=== PATIENT | female | born 1990 | race Caucasian/White ===

== ENCOUNTER → 2018-12-30 15:54 | Outpatient (CLI) | payer OTHER, SELFPAY ==
[2018-12-30 17:37] LABS: Thyroid Stimulating Hormone 2.01 uIU/mL (0.47-4.68)
== END ==
PROVIDERS: PCP Hospitalist; Visit Provider Hospitalist
DX: E03.9 Hypothyroidism, unspecified (principal)
CPT/HCPCS: 36415; 84443

== ENCOUNTER → 2020-04-10 10:22 | Outpatient (CLI) | payer OTHER, SELFPAY ==
[2020-04-10 12:18] LABS: Add Manual Diff / Slide Review NO; Basophils Absolute Auto 0 /uL (0-100); Basophils Percent Auto 0.5 % (0-2); Eosinophils Absolute Auto 0 /uL (0-450); Eosinophils Percent Auto 0.7 % (2-4); Hematocrit 38.5 % (36-46); Lymphocytes Absolute Auto 2200 /uL (1100-4500); Lymphocytes Percent Auto 33.4 % (25-40); Mean Corpuscular HGB Conc 33.9 % (30-36); Mean Corpuscular Hemoglobin 30.5 PG (26-34); Mean Corpuscular Volume 89.9 fL (80-100); Monocytes Absolute Auto 600 /uL (0-900); Monocytes Percent Auto 9.1 % (3-14); Neutrophils Absolute Auto 3800 /uL (1500-7000); Neutrophils Percent Auto 56.3 % (50-75); Platelet Count 208 X10^3/uL (150-400); Red Blood Cell Count 4.28 X10^6/uL (4.0-5.2); Red Cell Distribution Width 12.5 % (11.6-14.8); White Blood Cell Count 6.7 X10^3/uL (4.5-11.0)
[2020-04-10 13:04] LABS: TSH w/ Reflex to FT4 3.32 uIU/mL (0.47-4.68)
[2020-04-10 14:42] LABS: Vitamin D 25 Hydroxy (D3) 50.9 ng/mL (30.0-100.0)
== END ==
PROVIDERS: PCP Registered Nurse Diabetes Educator; Referring Provider Registered Nurse Diabetes Educator; Visit Provider Registered Nurse Diabetes Educator
DX: R45.86 Emotional lability (principal)
CPT/HCPCS: 36415; 82306; 84443; 85025

== ENCOUNTER → 2020-07-17 14:44 | Outpatient (CLI) | payer OTHER, SELFPAY ==
[2020-07-17 15:46] LABS: TSH w/ Reflex to FT4 3.26 uIU/mL (0.47-4.68)
== END ==
PROVIDERS: PCP Registered Nurse Diabetes Educator; Referring Provider Registered Nurse Diabetes Educator; Visit Provider Registered Nurse Diabetes Educator
DX: E03.9 Hypothyroidism, unspecified (principal)
CPT/HCPCS: 36415; 84443

== ENCOUNTER → 2020-11-15 09:05 | Outpatient (CLI) | payer OTHER, SELFPAY ==
[2020-11-15 10:24] LABS: Add Manual Diff / Slide Review NO; Basophils Absolute Auto 0 /uL (0-100); Basophils Percent Auto 0.4 % (0-2); Eosinophils Absolute Auto 0 /uL (0-450); Eosinophils Percent Auto 0.7 % (2-4); Hematocrit 37.4 % (36-46); Hemoglobin 12.9 g/dL (12.0-16.0); Lymphocytes Absolute Auto 2400 /uL (1100-4500); Lymphocytes Percent Auto 42.6 % (25-40); Mean Corpuscular HGB Conc 34.5 % (30-36); Mean Corpuscular Hemoglobin 31.3 PG (26-34); Mean Corpuscular Volume 90.7 fL (80-100); Monocytes Absolute Auto 500 /uL (0-900); Monocytes Percent Auto 8.1 % (3-14); Neutrophils Absolute Auto 2800 /uL (1500-7000); Neutrophils Percent Auto 48.2 % (50-75); Platelet Count 186 X10^3/uL (150-400); Red Blood Cell Count 4.12 X10^6/uL (4.0-5.2); Red Cell Distribution Width 12.8 % (11.6-14.8); White Blood Cell Count 5.7 X10^3/uL (4.5-11.0)
[2020-11-15 10:36] LABS: Erythrocyte Sedimentation Rate 8 MM/HR (0-20)
[2020-11-15 10:38] LABS: Alanine Aminotransferase 15 IU/L (<35); Albumin 4.3 g/dL (3.5-5.0); Albumin Globulin Ratio 1.4 (1.0-2.8); Alkaline Phosphatase 56 U/L (38-126); Aspartate Aminotransferase 25 IU/L (14-36); BUN Creatinine Ratio 19.4 (6-22); Bilirubin Total 0.3 mg/dL (0.2-1.3); Blood Urea Nitrogen 13 mg/dL (7-17); C-Reactive Protein Quant < 0.5 mg/dL (<1.0); Calcium 9.5 mg/dL (8.4-10.2); Carbon Dioxide 26 mmol/L (22-32); Chloride 104 mmol/L (98-107); Estimated Glomerular Filt Rate > 60.0 mL/min (>60); Globulin 3.1 g/dL (1.7-4.1); Glucose 74 mg/dL (70-100); HEMOLYSIS < 15 (0-50); Lipase 41 U/L (23-300); Potassium 4.3 mmol/L (3.4-5.1); Sodium 136 mmol/L (137-145); Total Protein 7.4 g/dL (6.3-8.2)
[2020-11-16 15:36] LABS: Deamidated Gliadin Ab IgA 4 units (0-19); Deamidated Gliadin Ab IgG 1 units (0-19); Immunoglobulin A,Qn 247 mg/dL (87-352); t-Transglutaminase IgA <2 U/mL (0-3)
[2020-11-17 10:47] LABS: Interpretation Negative (Negative)
== END ==
PROVIDERS: PCP Registered Nurse Diabetes Educator; Referring Provider Family Medicine; Visit Provider Family Medicine
DX: E03.9 Hypothyroidism, unspecified (principal); R10.9 Unspecified abdominal pain; R45.89 Other symptoms and signs involving emotional state
CPT/HCPCS: 36415; 80053; 82784; 83013; 83516; 83690; 85025; 85651; 86140

== ENCOUNTER → 2021-03-27 10:14 | Outpatient (CLI) | payer OTHER, SELFPAY ==
[2021-03-27 14:16] LABS: HEMOLYSIS 17 (0-50); Iron 89 ug/dL (37-170)
[2021-03-27 14:26] LABS: Percent Iron Saturation 32 % (15-50); Total Iron Binding Capacity 281 ug/dL (265-497); Transferrin 211 mg/dL (206-381)
[2021-03-27 14:47] LABS: Ferritin 28 ng/mL (6-137)
== END ==
PROVIDERS: PCP Registered Nurse Diabetes Educator; Referring Provider Registered Nurse Diabetes Educator; Visit Provider Registered Nurse Diabetes Educator
DX: E61.1 Iron deficiency (principal)
CPT/HCPCS: 36415; 82728; 83540; 83550

== ENCOUNTER → 2021-07-21 14:01 | Outpatient (CLI) | payer OTHER, SELFPAY ==
[2021-07-21 17:00] LABS: TSH w/ Reflex to FT4 1.26 uIU/mL (0.47-4.68)
[2021-07-21 17:04] LABS: Ferritin 39 ng/mL (6-137)
== END ==
PROVIDERS: PCP Registered Nurse Diabetes Educator; Referring Provider Registered Nurse Diabetes Educator; Visit Provider Registered Nurse Diabetes Educator
DX: R53.83 Other fatigue (principal); E03.9 Hypothyroidism, unspecified
CPT/HCPCS: 36415; 82728; 84443

== ENCOUNTER → 2022-04-20 16:16 | Outpatient (CLI) | payer OTHER, SELFPAY ==
[2022-04-20 18:32] LABS: Ferritin 45 ng/mL (6-137)
== END ==
PROVIDERS: PCP Registered Nurse Diabetes Educator; Referring Provider Registered Nurse Diabetes Educator; Visit Provider Registered Nurse Diabetes Educator
DX: R53.83 Other fatigue (principal); R79.0 Abnormal level of blood mineral
CPT/HCPCS: 36415; 82728

== ENCOUNTER → 2023-01-06 17:20 | Outpatient (CLI) | payer OTHER, SELFPAY ==
[2023-01-06 18:38] LABS: TSH w/ Reflex to FT4 4.88 uIU/mL (0.47-4.68)
== END ==
PROVIDERS: PCP Registered Nurse Diabetes Educator; Referring Provider Registered Nurse Diabetes Educator; Visit Provider Registered Nurse Diabetes Educator
DX: E03.9 Hypothyroidism, unspecified (principal)
CPT/HCPCS: 36415; 84439; 84443

== ENCOUNTER → 2023-03-09 17:10 | Outpatient (CLI) | payer OTHER, SELFPAY ==
[2023-03-09 19:06] LABS: TSH w/ Reflex to FT4 2.33 uIU/mL (0.47-4.68)
[2023-03-09 19:13] LABS: Ferritin 39 ng/mL (6-137)
== END ==
PROVIDERS: PCP Registered Nurse Diabetes Educator; Referring Provider Registered Nurse Diabetes Educator; Visit Provider Registered Nurse Diabetes Educator
DX: E03.9 Hypothyroidism, unspecified (principal); Z79.899 Other long term (current) drug therapy
CPT/HCPCS: 36415; 82728; 84443

== ENCOUNTER → 2023-03-25 13:21 | Outpatient (CLI) | payer OTHER, SELFPAY ==
[2023-03-25 19:02] LABS: COVID19 -Nasal RAPID Negative (Negative)
== END ==
PROVIDERS: PCP Registered Nurse Diabetes Educator; Visit Provider Physician Assistant
DX: Z20.822 Contact with and (suspected) exposure to COVID-19 (principal)
CPT/HCPCS: 87635

== ENCOUNTER → 2023-05-26 07:57 | Outpatient (CLI) | payer OTHER, SELFPAY ==
[2023-05-26 09:37] LABS: Add Manual Diff / Slide Review NO; Basophils Absolute Auto 0 /uL (0-100); Basophils Percent Auto 0.4 % (0-2); Eosinophils Absolute Auto 100 /uL (0-450); Eosinophils Percent Auto 1.2 % (2-4); Hematocrit 37.8 % (36-46); Lymphocytes Absolute Auto 2100 /uL (1100-4500); Lymphocytes Percent Auto 44.3 % (25-40); Mean Corpuscular HGB Conc 34.5 % (30-36); Mean Corpuscular Hemoglobin 31.2 PG (26-34); Mean Corpuscular Volume 90.5 fL (80-100); Monocytes Absolute Auto 400 /uL (0-900); Monocytes Percent Auto 9.2 % (3-14); Neutrophils Absolute Auto 2100 /uL (1500-7000); Neutrophils Percent Auto 44.9 % (50-75); Platelet Count 224 X10^3/uL (150-400); Red Blood Cell Count 4.17 X10^6/uL (4.0-5.2); Red Cell Distribution Width 12.6 % (11.6-14.8); White Blood Cell Count 4.6 X10^3/uL (4.5-11.0)
[2023-05-26 09:41] LABS: Hemoglobin A1C% w Est Avg Glu 4.9 % (4.0-6.0)
[2023-05-26 10:08] LABS: Alanine Aminotransferase 14 IU/L (<35); Albumin 4.2 g/dL (3.5-5.0); Albumin Globulin Ratio 1.4 (1.0-2.8); Alkaline Phosphatase 53 U/L (38-126); Aspartate Aminotransferase 21 IU/L (14-36); BUN Creatinine Ratio 19.2 (6-22); Bilirubin Total 0.4 mg/dL (0.2-1.3); Blood Urea Nitrogen 14 mg/dL (7-17); Calcium 9.3 mg/dL (8.4-10.2); Carbon Dioxide 26 mmol/L (22-32); Chloride 105 mmol/L (98-107); Cholesterol 163 mg/dL (140-199); Estimated Glomerular Filt Rate > 60 mL/min (>60); Globulin 3.1 g/dL (1.7-4.1); Glucose 78 mg/dL (70-100); HDL Cholesterol 68 mg/dL (40-60); HEMOLYSIS < 15 (0-50); LDL Cholesterol Calculated 85 mg/dL (<100); Potassium 3.9 mmol/L (3.4-5.1); Sodium 137 mmol/L (137-145); Total Protein 7.3 g/dL (6.3-8.2); Triglycerides 49 mg/dL (35-150)
[2023-05-26 10:13] LABS: Total Iron Binding Capacity 287 ug/dL (265-497); Transferrin 203 mg/dL (206-381)
[2023-05-26 10:19] LABS: Free T3, Triiodothyronine Free 3.29 pg/mL (2.77-5.27); Free T4, Direct Thyroxine 1.07 ng/dL (0.78-2.19)
[2023-05-26 10:21] LABS: HEMOLYSIS < 15 (0-50); Iron 70 ug/dL (37-170); Percent Iron Saturation 24 % (15-50)
[2023-05-26 10:32] LABS: Thyroid Stimulating Hormone 2.43 uIU/mL (0.47-4.68)
[2023-05-26 10:38] LABS: Ferritin 50 ng/mL (6-137)
[2023-05-26 11:10] LABS: Folate 10.6 ng/mL (2.76-20.0); Vitamin B12 825 pg/mL (239-931)
[2023-05-27 18:39] LABS: Anti Thyroglobulin Antibody 2.6 IU/mL (0.0-0.9); Thyroid Peroxidase Antibodies 525 IU/mL (0-34)
[2023-05-28 15:31] LABS: Insulin Level Total 4.2 uIU/mL (2.6-24.9)
[2023-06-01 11:02] LABS: Triiodothyronine T3 Reverse 13.3
== END ==
PROVIDERS: PCP Registered Nurse Diabetes Educator; Referring Provider Naturopath; Visit Provider Naturopath
DX: R79.89 Other specified abnormal findings of blood chemistry (principal); R53.83 Other fatigue; E03.9 Hypothyroidism, unspecified; Z00.01 Encounter for general adult medical examination with abnormal findings
CPT/HCPCS: 36415; 80053; 80061; 82607; 82728; 82746; 83036; 83525; 83540; 83550; 84439; 84443; 84481; 84482; 85025; 86376; 86800

== ENCOUNTER → 2024-10-30 07:48 | Outpatient (CLI) | payer OTHER, SELFPAY ==
--- NOTE | 2024-10-30 07:51 | DI.US.S_ITS ---
PROCEDURE: US OB >= 14 WEEKS FETUS INDICATIONS: 20WK ANATOMY SCAN OUTSIDE/PRIOR DATING DATA: Last menstrual period (LMP): 06/11/2024 LMP-based estimated date of delivery (BRENNON): 03/18/2025. First dating scan (date and location): 10/30/2024. Estimated date of delivery (BRENNON) from first dating scan: 03/13/2025. Working BRENNON is 03/15/2025 TECHNIQUE: Real-time scanning was performed of the fetus, with image documentation and biometric measurements. Endovaginal scanning: No COMPARISON: None. FINDINGS: General: A single living intrauterine gestation is present. Presentation: Vertex. Placenta: Placental position is anterior , without previa. Amniotic fluid index: 17.5 cm, normal range is 5-24 cm. Single deepest vertical pocket is 6 cm. heart rate: 147 beats per minute. Maternal cervical canal: Not well seen biometrics: Biparietal diameter: 21 weeks 2 days Head circumference: 20 weeks 3 days Abdominal circumference: 21 weeks 2 days Femur length: 20 weeks 1 day Clinically estimated gestational age: 20 weeks 4 days Composite gestational age from present scan: 20 weeks 6 days Estimated weight and percentile: 378 g, 58 percentile Anatomic survey: Neuro: Ventricles are non-dilated at less than 10 mm. Cisterna magna is normal at 3-11 mm. Cerebellum is normal in size and morphology. Nuchal skin fold: Normal at less than 6 mm between 14-21 weeks gestational age. Face: Nose and lips, facial profile are normal. Spine: No evidence for spina bifida. Heart: 4-chambered heart is present, with normal ventricular outflow tracts. Diaphragm: Diaphragm is intact. Stomach: Left-sided stomach is present. Kidneys: No hydronephrosis. Normal is less than 5 mm in 2nd trimester, less than 7 mm in 3rd trimester. Cord: 3-vessel cord has orthotopic insertion. Bladder: Normal in size. Extremities: All 4 extremities identified. IMPRESSION: 1. Single living IUP with composite gestational age of 20 weeks 6 days corresponding to ultrasound BRENNON of 03/13/2025. 2. Normal anatomic survey. 3. Cervix not well seen on today's exam. Short-term follow-up recommended. We strive to produce accurate, complete, and clear reports of imaging services. To assist us in improving patient care, this report was composed using standard report templates and voice recognition software. Therefore, it may contain abnormal punctuation, insertions and/or omissions. Occasional wrong-word or sound-alike substitutions may occur. Though we review the report and make efforts to correct it, we do recommend that the report be read carefully in proper context to recognize any text inaccuracies. Dictated by: Hunter DENISE Interpreted: Naldo Dominguez MD on 10/30/2024 at 9:45 Transcribed by: DEONTE on 10/30/2024 at 9:55 Approved by: Naldo Dominguez M.D. on 10/31/2024 at 13:17
== END ==
LOC: US 07:49
PROVIDERS: PCP Registered Nurse Diabetes Educator; Referring Provider Nurse Practitioner Obstetrics & Gynecology; Visit Provider Nurse Practitioner Obstetrics & Gynecology
DX: Z34.92 Encounter for supervision of normal pregnancy, unspecified, second trimester (principal); Z3A.20 20 weeks gestation of pregnancy
CPT/HCPCS: 76811

== ENCOUNTER → 2024-11-09 12:40 | Outpatient (CLI) | payer OTHER, SELFPAY ==
--- NOTE | 2024-11-09 12:42 | DI.US.S_ITS ---
PROCEDURE: US OB FOLLOW UP INDICATIONS: F/U - CERVICAL LENGTH NOT SEEN WELL OUTSIDE/PRIOR DATING DATA: Last menstrual period (LMP): 06/11/24. LMP-based estimated date of delivery (BRENNON): 03/18/25. First dating scan (date and location): 10/30/24. Estimated date of delivery (BRENNON) from first dating scan: 03/13/25. The calculations are made using the most accurate BRENNON of 03/13/25. TECHNIQUE: Real-time scanning was performed of the fetus, with image documentation. Endovaginal scanning: Not needed COMPARISON: [facility], OB >= 14 WEEKS FETUS, 10/30/2024, 7:07. FINDINGS: A single living intrauterine gestation is present. Presentation: Vertex. Placenta: Placental position is anterior, without previa. Amniotic fluid index: 15.9 cm, normal range is 5-24 cm. Single deepest vertical pocket is 5.3 cm. heart rate: 132 beats per minute. Maternal cervical canal: 4.0 cm long. Normal lower limit is 2.5 cm. Clinically estimated gestational age: 22 weeks 0 days Estimated gestational age from initial scan: 22 weeks 0 days. IMPRESSION: Normal maternal cervical length. No anomaly seen. Dictated by: Lazarus Santos M.D. on 11/10/2024 at 13:56 Approved by: Lazarus Santos M.D. on 11/10/2024 at 14:03
== END ==
PROVIDERS: PCP Registered Nurse Diabetes Educator; Referring Provider Registered Nurse Diabetes Educator; Visit Provider Nurse Practitioner Obstetrics & Gynecology
DX: Z36.86 Encounter for antenatal screening for cervical length; Z3A.22 22 weeks gestation of pregnancy
CPT/HCPCS: 76816

== ENCOUNTER 2025-03-08 10:37 | Inpatient (IN) | payer OTHER, SELFPAY ==
[2025-03-08] VITALS (7 sets, daily range): BP systolic 113–138; BP diastolic 62–79; PULSE 79–91; RESP 16–22; TEMP 36.2–36.6; O2SAT 100
[2025-03-08] MEDS: LACTATED RINGERS 1,000 ML 999 ML IV (11:34)
--- NOTE | 2025-03-08 11:49 | P.HPOB_ITS ---
OB HPI Date/Time Date of admission: 03/08/25 Date Patient Seen: 03/08/25 Time Patient Seen: 11:49 History of Present Condition Chief complaint: INPT C SECTION BRENNON Calculator 2 Estimated Delivery Date Method Current WG Current Estimate 03/15/25 Ultrasound #1 39w 0d Other Estimates 03/18/25 LMP (Uncertain) 38w 4d : 1 Para: 0 Narrative: 34yo at 39+0wks presenting for planned primary due to breech presentation. She underwent failed ECV at 37wks. [facility] care: good care Dating criteria OB: based on 1st trimester US only Ultrasounds: normal mid trimester US Narrative: Hypothyroidism (on 100mcg synthroid) Indications Operative indications ( section): breech presentation Preadmission Labs Last OB Lab Results: 2 Blood Type Pending Today, 11:00 Antibody Screen Pending Today, 11:00 Hct, (36-46) 36.6 % Today, 11:00 Hgb, (12.0-16.0) 12.6 g/dL Today, 11:00 Hemoglobin A1c, (4.0-6.0) 4.9 % 05/26/23, 08:0 5 -: Urine: negative External Labs Blood type OB HPI: 0 (-) negative -: Antibody screen: negative, HBsAG: negative, HIV: negative, RPR/VDLR: negative, Chlamydia screen: negative, Gonorrhea screen: negative, GBS status: negative and Urine: negative -: Rubella: immune and Varicella: immune Genetic Screens: Cell-free DNA: Normal and Alpha-fetoprotein: Normal Narrative: No glucose screening completed Evaluation Evaluation Baseline heart rate: 130 Variability: Moderate (6-25) monitor accelerations: Present Monitor Decelerations: Absent Contraction Frequency (minutes): 3 Category of Tracing: Reactive PFSH Medical History Chicken pox Hypothyroidism Surgical History Anesthesia [place] teeth removed (~2008) Family History Grandmother Cancer Social History Smoking Status: Never smoker Meds Home Medications and Allergies Allergies Allergy/AdvReac Type Severity Reaction Status Date / Time peanut Allergy Mild Hives Verified 03/08/25 12:06 Penicillins Allergy Mild Rash Verified 03/08/25 12:06 Review of Systems Review of Systems ROS: Yes All systems reviewed with the patient and are negative except as otherwise documented OB Exam Vital signs Blood Pressure: 113/79 Pulse Rate: 88 Temperature: 97.8 F HENMT Head: normocephalic Resp Effort & Inspection: normal respiratory effort and able to speak in complete sentences Extremities Lower extremity: Yes normal to inspection GI Other: gravid, soft, nontender Other: confirmed breech on bedside ultrasound Objective Labs 03/08/25 11:00 Assessment and Plan Assessment and Plan Assessment and Plan narrative: 34yo at 39+0wks by 1st trimester ultrasound, admitted for primary due to persistent breech presentation (s/p failed ECV at 37wks). Her PNC is c/b Rh negative status. She reports a penicillin allergy in childhood, with a pruritic rash that showed up 1 week later. -CBC, T&S on admission -NST on admission -neuraxial anesthesia -GBS neg; plan for 2g Ancef for surgical prophylaxis -PPH risk low -VTE risk low, SCDs with epidural -will move to OR for delivery once all teams ready counseling: It was explained to the patient that a section is a surgery to deliver the baby through an incision in the abdominal wall and uterus.? All procedures can be associated with risk and unforeseen complications, which can be immediate or delayed.? Risks and complications of section include, but are not limited to:? infection of the uterus, pelvic organs, or skin; inadvertent injury to internal organs such as the bowel, bladder, or possibly even the baby; blood loss, transfusion, and/or life-threatening hemorrhage requiring hysterectomy; blood clots in the legs, pelvic organs, or lungs; adverse reaction to medications or anesthesia during surgery; development of placenta accreta spectrum in a subsequent ; and increased risk of section in a subsequent . Time-Based Coding :: [45min] spent with patient and on the chart (including review of chart, obtaining history, exam, reviewing outside data, placing orders, documenting exam and treatment plan, and counseling patient) on [03/08/25].
[2025-03-08 11:51] LABS: Add Manual Diff / Slide Review NO; Hematocrit 36.6 % (36-46); Hemoglobin 12.6 g/dL (12.0-16.0); Lymphocytes Absolute Auto 2600 /uL (1100-4500); Mean Corpuscular HGB Conc 34.5 % (30-36); Mean Corpuscular Hemoglobin 32.1 PG (26-34); Mean Corpuscular Volume 92.9 fL (80-100); Platelet Count 246 X10^3/uL (150-400)
[2025-03-08] MEDS: CITRIC ACID/SODIUM CITRATE 15 ML SOLUTION 30 ML PO (12:39)
--- NOTE | 2025-03-08 12:45 | SUR.OPER ---
Supine on padded OR bed, head on pillow, arms secured on padded arm boards at <90 degrees abduction, legs uncrossed,bump to right hip, safety belt at thigh, tape over blanket over lower legs.
[2025-03-08] MEDS: CEFAZOLIN 2 GM/100 ML PREMIX 100 ML IV (13:00)
[2025-03-08] MEDS: ACETAMINOPHEN IV 1,000 MG/100 ML VIAL 400 MG IV (13:05)
--- NOTE | 2025-03-08 13:49 | SUR.OPER ---
EBL 900ML
--- NOTE | 2025-03-08 13:58 | PM.OBCS.1 ---
Operative Date/Time/Diagnoses Date of procedure: 03/08/25 Time of procedure: 13:00 Pre-op diagnosis: 1. Wiley intrauterine gestation at 39+0 weeks 2. Breech presentation Post-op diagnosis: same Procedure & Clinicians Procedure: Primary low transverse section Same procedure(s) as scheduled: Yes Indications: 34yo at 39+0wks admitted for planned primary due to persistent breech presentation. Surgeon: Gayle Gonzalez Centerless Grinding Machine Adjuster: Chloe Crawford Reason for Centerless Grinding Machine Adjuster: Centerless Grinding Machine Adjuster was necessary for timely, efficient, and safe completion of the procedure. Anesthesia Type: Spinal Operative Notes Findings: Normal-appearing uterus and bilateral fallopian tubes and ovaries. Clear fluid noted with AROM. Delivery productive of a viable male in betty breech presentation with APGARs 8/9 and weighing 2618g. Specimen(s): cord blood Intraoperative meds administered: Duramorph, Ketorolac and Pitocin Applied: Catheter Estimated Blood Loss (mL): 900 Blood products transfused: none Procedure in detail: The risks, benefits, indications and alternatives of the procedure were reviewed with the patient and informed consent was obtained. The patient was taken to the operating room where spinal anesthesia was obtained without difficulty and was found to be adequate. Sequential compression devices were placed bilaterally for VTE prophylaxis. She was then prepped and draped in the normal, sterile fashion in the dorsal supine position with a leftward tilt. She received 2g Ancef for surgical prophylaxis. A Pfannenstiel skin incision was then made with the scalpel and carried through to the underlying layer of fascia. The fascia was incised in the midline and the incision extended laterally with the Shelley scissors. The fascia was then from the rectus muscles bluntly. The rectus muscles were at the midline. The peritoneum was identified, and entered digitally. The peritoneal incision was then extended horizontally, superiorly and inferiorly, with good visualization of the bladder. The Lorenzo retractor was then inserted. The vesicouterine peritoneum was then identified, grasped with pick-ups, and entered sharply with Metzenbaum scissors. This incision was then extended laterally and the bladder flap was created digitally. The lower uterine segment was incised in a transverse fashion with the scalpel. The uterine incision was then extended manually in a cephalad/caudad direction. The amniotic sac was artificially ruptured, productive of clear fluid. The ?s sacrum was grasped and brought to the level of the hysterotomy. Pinard?s maneuver was used to atraumatically deliver the legs through the hysterotomy. A blue towel was placed around the sacrum and Loveset?s maneuver was performed to the level of the scapula.? The bilateral arms were swept and delivered followed by the head using the Nhwsxmvve-Jbafpzx-Jvor maneuver. The baby was brought up to the drape so that the patient could see him, however during this process the cord avulsed about 2-3cm from the infant. The cord was quickly clamped, and the baby was handed off to the warmer. The placenta was then removed spontaneously with gentle traction on the umbilical cord. The uterus was exteriorized and cleared of all clots and debris. The uterine incision was repaired with 0-vicryl in a running, locked fashion. A figure of eight suture of 0-monocryl was then placed at the center of the hysterotomy with excellent hemostasis achieved. The paracolic gutters were cleared of all clot and debris. The Lorenzo retractor was then removed. The fascia was reapproximated with 0-vicryl in a running fashion. The subcutaneous layer was closed with 3-0 vicryl in simple, interrupted sutures. The skin was closed with 4-0 monocryl in a subcuticular fashion. The incision was then dressed with steri-strips and a pressure dressing was applied. At the completion of the case, a Crede maneuver was performed with good uterine tone and minimal vaginal bleeding noted.? The patient tolerated the procedure well. Sponge, lap and needle counts were correct x3. The patient was taken to the recovery room in stable condition. The patient is a candidate for a trial of labor after . Complications: none Post-operative Condition: stable Disposition: PACU Aftercare: routine postop
[2025-03-08] MEDS: TRANEXAMIC ACID 1,000 MG in SODIUM CHLORIDE 0.9% 100 ML 200 MG IV (14:39)
[2025-03-08] MEDS: OXYTOCIN PREMIX 30 UNIT/500 ML PLAST..BAG 200 UNIT IV (15:00)
--- NOTE | 2025-03-08 15:09 | P.PCN_ITS ---
Procedures Date/Time Date of procedure: 03/08/25 Time of procedure: 12:30 General Procedure description: Engineering Teacher Documentation I assisted the OB mobile sales consultant in the section for this patient. My responsibilities included retracting and suctioning, providing fundal pressure during delivery and following with suture during closure. Please see the OB's note for details of the surgery. Delivery at 1417.
[2025-03-08] MEDS: LACTATED RINGERS 1,000 ML 1000 ML IV (15:11)
[2025-03-08] MEDS: KETOROLAC 30 MG/ML VIAL IV (20:16)
[2025-03-08] MEDS: ACETAMINOPHEN 325 MG TABLET 650 MG PO (20:17)
[2025-03-09] MEDS: KETOROLAC 30 MG/ML VIAL IV ×2 (01:58→08:53)
[2025-03-09] MEDS: ACETAMINOPHEN 325 MG TABLET 650 MG PO ×4 (01:58→20:03)
[2025-03-09 06:32] LABS: Add Manual Diff / Slide Review NO; Hematocrit 25.5 % (36-46); Hemoglobin 8.6 g/dL (12.0-16.0); Lymphocytes Absolute Auto 2200 /uL (1100-4500); Mean Corpuscular HGB Conc 33.9 % (30-36); Mean Corpuscular Hemoglobin 31.7 PG (26-34); Mean Corpuscular Volume 93.4 fL (80-100); Platelet Count 193 X10^3/uL (150-400)
--- NOTE | 2025-03-09 07:53 | P.PNOB_ITS ---
Subjective - OB Subjective Patient comments: no complaints [place] feeding status: breast and bottle feeding Date Patient Seen: 03/09/25 Time Patient Seen: 07:34 Interval history: 34-year-old G1 now P1 POD#1 s/p PLTCS for breech presentation. She reports feeling well, pain is well controlled. She is ambulated without dizziness or lightheadedness. Is voiding spontaneously. Vaginal bleeding is like a period. She is and pumping. Exam Vital Signs (past 8 hours): Oxygen Delivery Method Room Air Vitals reviewed in OBIX, within normal parameters Const General: healthy appearing, comfortable and No acute distress Resp Effort & Inspection: normal respiratory effort and able to speak in complete sentences GI Other: Soft, appropriately tender, nondistended Skin Other: Pfannenstiel skin incision clean/dry/intact with Steri-Strips in place Neuro Cognition: normal cognition Speech: speech normal Extrem General: normal to inspection and no calf tenderness Psych Mood: congruent mood Affect: normal affect Objective Labs 03/09/25 06:18 Labs: Laboratory Results - last 24 hr 03/08/25 03/09/25 11:00 06:18 WBC 9.9 14.7 H RBC 3.94 L 2.73 L Hgb 12.6 8.6 L Hct 36.6 25.5 L MCV 92.9 93.4 MCH 32.1 31.7 MCHC 34.5 33.9 RDW 12.8 12.7 Plt Count 246 193 Neut % (Auto) 68.1 76.8 H Lymph % (Auto) 26.0 14.8 L [place] % (Auto) 5.0 8.3 Eos % (Auto) 0.3 L 0.0 L Baso % (Auto) 0.6 0.1 Neut # (Auto) 6700 68611 H Lymph # (Auto) 2600 2200 [place] # (Auto) 500 1200 H Eos # (Auto) 0 0 Baso # (Auto) 100 0 Blood Type O Negative Antibody Screen Positive Antibody Identification Anti-D Assessment & Plan Assessment and Plan (1) delivery indicated due to breech presentation: Status: Acute (2) Breech presentation delivered: Status: Acute (3) Acute postoperative anemia due to expected blood loss: Status: Acute (4) Rh negative state in antepartum period: Status: Acute (5) Hypothyroidism complicating : Status: Acute Plan day: 1 plan OB: routine postop care Comments: 34-year-old G1 now P1 POD#1 s/p PLTCS for breech presentation, doing well in the period. - plan for IV iron today due to anemia - continue routine care - anticipate d/c home tomorrow Time-Based Coding :: [25min] spent with patient and on the chart (including review of chart, obtaining history, exam, reviewing outside data, placing orders, documenting exam and treatment plan, and counseling patient) on [03/09/25].
[2025-03-09] MEDS: LANOLIN OINT 7 GM 1 APPLIC TOP (08:51)
[2025-03-09] MEDS: DOCUSATE 100 MG CAPSULE PO (08:52)
[2025-03-09] MEDS: PRENATAL VIT,CALC/IRON/FOLIC 1 TABLET 1 TAB PO (08:52)
[2025-03-09] MEDS: IRON SUCROSE 300 MG in SODIUM CHLORIDE 0.9% 250 ML 176.667 MG IV (09:38)
[2025-03-09] MEDS: IBUPROFEN 600 MG TABLET PO ×2 (14:04→20:04)
[2025-03-09] MEDS: OXYCODONE IR 5 MG TABLET PO ×2 (15:15→20:03)
[2025-03-10] MEDS: OXYCODONE IR 5 MG TABLET PO ×3 (01:02→10:17)
[2025-03-10] MEDS: ACETAMINOPHEN 325 MG TABLET 650 MG PO ×2 (02:40→08:44)
[2025-03-10] MEDS: IBUPROFEN 600 MG TABLET PO ×2 (02:41→08:45)
[2025-03-10 06:07] LABS: Hematocrit 24.6 % (36-46); Hemoglobin 8.5 g/dL (12.0-16.0)
[2025-03-10] MEDS: PRENATAL VIT,CALC/IRON/FOLIC 1 TABLET 1 TAB PO (08:45)
[2025-03-10] MEDS: DOCUSATE 100 MG CAPSULE PO (08:48)
[2025-03-10] MEDS: FERROUS SULFATE 325 MG TABLET PO (08:48)
[2025-03-10] MEDS: RHO(D) IMMUNE GLOBULIN 1,500 UNIT SYRINGE 1500 UNIT IM (08:48)
--- NOTE | 2025-03-10 09:13 | P.DS_ITS ---
Discharge Providers Provider Date of admission: 03/08/25 10:37 Discharge Date: 03/10/25 Primary care physician: DAVINA Crespo Consults: 03/08/25 14:21 Consult to Manager Mortgage Routine Comment: Discharge provider: Chloe Crawford CNM, ARNP Summary Hospital Course Date Patient Seen: 03/10/25 Time Patient Seen: 09:13 Hospital Course: Planned . PPH. Iron infusion. Otherwise normal care. . Peripartum Data Delivery Method: Section [place] 1: Gender: Male Disposition of : home Discharge Diagnosis (1) delivery indicated due to breech presentation: Status: Acute (2) Breech presentation delivered: Status: Acute (3) Acute postoperative anemia due to expected blood loss: Status: Acute (4) Rh negative state in antepartum period: Status: Acute (5) Hypothyroidism complicating : Status: Acute Time Spent with Patient Time attestation: Total time spent providing and/or coordinating discharge services: Objective Labs 03/10/25 05:55 Labs: Laboratory Results - last 24 hr 03/10/25 05:55 Hgb 8.5 L Hct 24.6 L Exam Vital Signs (past 8 hours): 188/73, 79, pain 5/10, 97.9 F, 16/min Oxygen Delivery Method Room Air Other: Fundus firm at U-2, midline. Lochia moderate Perineum intact with minimal edema Discharge Plan Discharge Plan Patient Disposition: Home Discharge orders & Medications Follow up/Referrals: Jayden Swanson ARNP [Primary Care Provider, Medical] Danielle Menendez MD [Physician, [employer]] - 04/20/25 11:30 am Referral Note: Additionally, please follow up for your 6 week appointment on April 20 @11:30am. Please arrive at 11:15am! Gayle Gonzalez DO [Physician, [employer]] - 03/16/25 11:30 am Referral Note: Please follow up w/ Dr. Gonzalez for your 1 week incision check on March 16 @11:30am. Please check in at 11:15am! Diet/Activity/Treatments Diet: Diet as Tolerated and Regular Diet comment: increase fiber and fluid Visit Report/Discharge Packet Stand Alone Forms: Patient Portal/API, Stroke Signs & Symptoms Discharge Data Primary Care Provider: Jayden Swanson
[2025-03-10 09:52] VITALS: BP 118/73; PULSE 79; RESP 16; TEMP 36.6
== END 2025-03-10 12:25 | disposition home or self-care (01) | DRG 787 ==
PROVIDERS: Admitting Provider Student in an Organized Health Care Education/Training Program; PCP Registered Nurse Diabetes Educator; Referring Provider Student in an Organized Health Care Education/Training Program; Visit Provider Student in an Organized Health Care Education/Training Program
PROC: 10D00Z1 Extraction of Products of Conception, Low, Open Approach (ICD-10-PCS; CPT 59514; principal; 2025-03-08 12:15)
DX: O32.1XX0 Maternal care for breech presentation, not applicable or unspecified (principal); D62 Acute posthemorrhagic anemia; O90.81 Anemia of the puerperium; Z3A.39 39 weeks gestation of pregnancy; Z37.0 Single live birth; O99.284 Endocrine, nutritional and metabolic diseases complicating childbirth; E03.9 Hypothyroidism, unspecified
CPT/HCPCS: 36415; 59050; 76815; 85014; 85018; 85025; 85461; 86850; 86870; 86900; 86901; J0131; J0690; J1100; J1756; J1885; J2274; J2405; J2590; J2790